=== PATIENT | female | born 1980 | race Caucasian/White ===

== ENCOUNTER → 2017-03-15 | Outpatient (CLI) | payer BC ==
[~2017-03-15] MED LIST: CDN30 PO; LEVO88CA2 PO; MTR600X PO; NAPR1TAB9 PO; OPTIRAY 300 IV PRN; RXC5 PO; TRAZ50TA35 PO
--- NOTE | 2017-03-15 14:58 | DIAGNOSTIC IMAGING REPORT ---
IVP W/OR W/O TOMOGRAMS CLINICAL HISTORY: Elevated creatinine. COMPARISON STUDY: No previous studies for comparison. TECHNIQUE: Initially, air value tester KUB was obtained. An intravenous pyelogram was then performed following intravenous injection 100 cc of Optiray 300 IV. FINDINGS: Harvest Supervisor KUB demonstrates a normal bowel gas pattern. No urinary calculi are identified although the right renal shadow is partially obscured by stool. Densities projecting over the right kidney favor stool. Tubal ligation clips are noted. Both nephrograms are symmetric. There is no hydronephrosis. 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 The ureters are duplicated at least to the level of the distal ureter. It's unclear on this exam whether this is a complete or incomplete duplication. The left collecting system is normal. No upper tract filling defects are identified. IMPRESSION: 1. 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 It's unclear whether this represents a complete or incomplete duplication. The distal ureters may fuse although an ectopic insertion cannot be excluded on this exam. 2. No hydronephrosis. 3. No upper tract filling defects. Electronically signed by: Jewel Lino M.D. 03/15/2017 2:56 PM Dictated Date/Time: 03/15/2017 2:27 PM
== END | disposition home or self-care (01) ==
LOC: C.RAD 12:24
PROVIDERS: ATTEND Obstetrics & Gynecology
DX: R79.89 Other specified abnormal findings of blood chemistry (principal)

== ENCOUNTER 2017-03-24 07:56 | Observation (INO) | payer BC ==
[2017-03-09 16:47] LABS: BASO % 0.2 %; BASO ABS # 0.01 K/uL (0-0.2); COMPLETE YES; EOS % 2.8 %; HEMATOCRIT 37.4 % (37-47); IG% 0.2 %; LYMPH % 30.2 %; LYMPH ABS # 1.81 K/uL (1.2-3.4); MEAN CELL VOLUME 91.2 fL (80-100); MEAN CORPUSCULAR HEMOGLOBIN 30.5 pg (25-34); MEAN CORPUSCULAR HGB CONC 33.4 g/dl (32-36); MEAN PLATELET VOLUME 9.3 fL (7.4-10.4); MONO % 8.5 %; NEUT % 58.1 %; PLATELET COUNT 311 K/uL (130-400); WHITE BLOOD COUNT 5.99 K/uL (4.8-10.8)
[2017-03-09 17:21] LABS: BLOOD UREA NITROGEN 17 mg/dl (7-18); BUN/CREATININE RATIO 15.1 (10-20); CARBON DIOXIDE 27 mmol/L (21-32); CHLORIDE 107 mmol/L (98-107); GLUCOSE 91 mg/dl (70-99); POTASSIUM 4.1 mmol/L (3.5-5.1); SODIUM 139 mmol/L (136-145)
[2017-03-09 18:04] LABS: CALCIUM 8.8 mg/dl (8.5-10.1)
[2017-03-10 10:24] VITALS: BMI 24.0
[~2017-03-24] VITALS: Ht 170.2 cm; Wt 70.5 kg
[2017-03-24] VITALS (8 sets, daily range): BP systolic 90–103; BP diastolic 40–70; PULSE 60–76; TEMP 36.5–37; O2SAT 97–100; Ht 170.2 cm; Wt 70.5 kg
[~2017-03-24 07:56] MED LIST changes: -CDN30 PO; +CEFAZOLIN 2000 MG/60 ML D5W 50 ML IV SCH; +LACTATED RINGER'S 1000ML 1,000 ML IV SCH; -MTR600X PO; -OPTIRAY 300 IV PRN; -RXC5 PO; -TRAZ50TA35 PO
[2017-03-24] MEDS ORDERED: MIDAZOLAM HCL 1 MG/ML 2ML VIAL ONE (08:05)
[2017-03-24] MEDS ORDERED: FENTANYL CITRATE INJ 50 MCG/1 ML 2 ML VIAL ONE ×3 (08:05→12:08)
[2017-03-24] MEDS ORDERED: TRAZ50TA35 PO (08:19)
--- NOTE | 2017-03-24 08:36 | History & Physical Bridge Note ---
H&P Re-Evaluation Bridge Note: I have examined the patient, reviewed the History & Physical and in the interval since the performance of the History & Physical I have noted the following changes of clinical significance: No changes noted
[2017-03-24] MEDS ORDERED: BUPIVACAINE 0.5 % 5 MG/1 ML MPF 30ML VIAL ONE (09:23)
[2017-03-24] MEDS ORDERED: METHYLENE BLUE 0.5% 10 ML VIAL ONE (09:23)
[2017-03-24] MEDS ORDERED: DEXAMETHASONE SOD INJ 4 MG/ML VIAL ONE (10:16)
[2017-03-24] MEDS ORDERED: ROCURONIUM BROMIDE 10 MG/ML 5 ML VIAL ONE ×2 (10:16→10:48)
[2017-03-24] MEDS ORDERED: NEOSTIGMINE METHYLSULFATE 5 MG/5 ML SYR ONE (10:16)
[2017-03-24] MEDS ORDERED: PROPOFOL IV EMULSION 10 MG/ML 20 ML VIAL IV ONE ×2 (10:16→12:18)
[2017-03-24] MEDS ORDERED: ONDANSETRON INJ 2 MG/ML 2 ML VIAL ONE (10:16)
[2017-03-24] MEDS ORDERED: LIDOCAINE HCL 2% 2 ML VIAL (20MG/ML) ONE (10:16)
[2017-03-24] MEDS ORDERED: GLYCOPYRROLATE INJ 0.2 MG/ML VIAL ONE (10:16)
[2017-03-24] MEDS ORDERED: ATROPINE SULFATE 0.1 MG/ML 5ML SYR IV PRN (10:30)
[2017-03-24] MEDS ORDERED: LABETALOL HCL IV 5 MG/ML 20ML IV PRN (10:30)
[2017-03-24] MEDS ORDERED: EpHEDrine SULFATE INJ 50 MG/ML AMP IV PRN (10:30)
[2017-03-24] MEDS ORDERED: MEPERIDINE HCL 25 MG/ML CARP IV PRN (10:30)
[2017-03-24] MEDS ORDERED: ONDANSETRON INJ 2 MG/ML 2 ML VIAL IV PRN ×2 (10:30→12:15)
[2017-03-24] MEDS ORDERED: HYDROmorphone INJ 0.5 MG/0.5 ML SYR IV PRN (10:30)
[2017-03-24] MEDS ORDERED: LACTATED RINGER'S 1000ML 1,000 ML IV SCH (12:11)
--- NOTE | 2017-03-24 12:14 | [facility] Post Operative Brief Note ---
Immediate Operative Summary Operative Date March 24, 2017. Pre-Operative Diagnosis Menorrhagia, Pelvic Pain, Uterine Leiomyoma Post-Operative Diagnosis Same as preop Procedure(s) Performed Total Laparoscopic Hysterectomy, Bilateral Salpingectomy Robot Assist; Cystoscopy Surgeon Dr. Ford Outpatient Coding Specialist Surgeon(s) Dr. Cassidy Estimated Blood Loss 30ml Findings adhesions Specimens A. Cervix, Uterus, Bilateral Fallopian Tubes Drains Renae Anesthesia General Complication(s) None Disposition Recovery Room / PACU
[2017-03-24] MEDS ORDERED: PROMETHAZINE HCL INJ 12.5 MG in SODIUM CHLORIDE 0.9% 50ML 50 ML IV PRN (12:15)
[2017-03-24] MEDS ORDERED: MAGNESIUM HYDROXIDE SUSP 30 ML UDC PO PRN (12:15)
[2017-03-24] MEDS ORDERED: KETOROLAC TROMETHAMINE 30 MG/ML VIAL IV. PRN (12:15)
[2017-03-24] MEDS ORDERED: SIMETHICONE 80 MG CHEW PO PRN (12:15)
[2017-03-24] MEDS ORDERED: MEPERIDINE HCL 50 MG/ML CARP IV PRN ×2 (12:15)
[2017-03-24] MEDS ORDERED: IBUPROFEN 600 MG TAB PO PRN (12:15)
[2017-03-24] MEDS ORDERED: CODEINE SULFATE 30 MG TAB PO PRN (12:15)
[2017-03-24] MEDS ORDERED: PROMETHAZINE HCL INJ 25 MG in SODIUM CHLORIDE 0.9% 50ML 50 ML IV PRN (12:15)
[2017-03-24] MEDS ORDERED: BISACODYL 10 MG SUPP PR PRN (12:15)
[2017-03-24] MEDS ORDERED: ZOLPIDEM TARTRATE 5 MG TAB PO PRN (12:15)
--- NOTE | 2017-03-24 12:23 | Discharge Instructions ---
Discharge Instructions Date of Service March 24, 2017. Admission Reason for Admission: Menorrhagia, Pelvic Pain, Uterine Leiomyoma Discharge Discharge Diagnosis / Problem: menorrhagia Discharge Goals Goal(s): Routine recovery after surgery Activity Recommendations Activity Limitations: per Instructions/Follow-up section . Instructions / Follow-Up Instructions / Follow-Up POST OPERATIVE: BOWEL FUNCTION/MEDICATIONS: 1. Constipation pain and discomfort are the most common complaints 5-7 days after surgery. Points 2-6 address the things that can help. 2. Chewing gum can help stimulate the gut and help improve digestion and motility. 3. Milk of Magnesia 1-2 times per day until return of bowel function. 4. Colace is a stool softener that helps. Taking this 2-3 times per day until bowel function returns to normal is highly recommended. 5. Dulcolax is a laxative that may be used if several days have passed without a bowel movement. Alternatively Miralax may be used daily instead. 6. Drink plenty of fluids as this will also reduce constipation. 7. Narcotic pain medications will be prescribed by your physician. They are safe to use and we encourage you to use them. If you are not allergic, ibuprofen will also be prescribed. Many patients will be able to transition off of the narcotic medications to ibuprofen by postoperative day 3. ACTIVITY RECOMMENDATIONS: 1. Get plenty of rest and listen to your body. If you are tired, take a nap. 2. You may shower, but do not take a tub bath until you see your doctor at the 2 week post operative visit. 3. Absolutely NO intercourse and nothing in the vagina until you are examined by your doctor at the 6 week visit. At that visit it will be determined when such activities can be resumed. This can range from 6-12 weeks after your surgery depending on healing time. 4. The main physical activity in the first week should be walking. By the second week you can slowly increase activity. There are no limits on walking up and down stairs. 5. Do not lift more than 5-10 lbs for 4 weeks. Remember the "one-handed rule", i.e. if you can lift something with only one hand it's likely okay. 6. Minimize marketing operations assistant like vacuuming and exercising for 4 weeks. "Overdoing it" can lead to incisions not healing, pain and vaginal bleeding , so again, listen to your body. 7. Driving can be resumed when you feel able. Do not drive within 24 hours of taking a narcotic medication. EXPECTATIONS: 1. Vaginal spotting, bleeding and discharge are common after surgery. There may even be an odor to the discharge which is often related to sutures used in the vagina. If you experience heavy vaginal bleeding, call the office number day or night [phone]. 2. Bladder discomfort is common after surgery from the catheter. This usually resolves in 1-2 weeks. 3. By the end of the 3rd or 4th week you should be feeling much better. It may take up to 6 weeks for your energy levels to return to normal. 4. Narcotic medications have side effects such as: dizziness, headache, nausea and/or vomiting. If you suspect your pain medication is causing problems, call our office and we may be able to prescribe an alternate medication. 5. The skin incisions are often covered with a liquid bandage. This will gradually peel off over time. CALL THE OFFICE IF YOU HAVE ANY OF THE FOLLOWIN. Temperature of 101 degrees or higher. 2. Severe abdominal or pelvic pain not relieved by pain medication. 3. Persistent nausea or vomiting. 4. Increased pain with urination or difficulty urinating. 5. Bright red bleeding that soaks more than 1 pad per hour. CONTACT PHONE NUMBERS: Main Office: [phone] Surgical Nurse: [phone] extension [phone] Avoid all tobacco products. If you need help to stop smoking, call [place]'s FREE QUITLINE at . This is a free call. Current Hospital Diet Patient's current hospital diet: Discharge Diet Recommended Diet: Regular Diet Procedures Procedures Performed: Total Laparoscopic Hysterectomy, Bilateral Salpingectomy Robot Assist; Cystoscopy Pending Studies Studies pending at discharge: no Medical Emergencies . Who to Call and When: Medical Emergencies: If at any time you feel your situation is an emergency, please call 911 immediately. . Non-Emergent Contact Non-Emergency issues call your: [employer] Targeting Supervisor . . "Provider Documentation" section prepared by Raul Ford. . VTE Core Measure Inpt VTE Proph given/why not?: Margareth Moon, ESTEFANIA's
[2017-03-24] MEDS ORDERED: CDN30 PO (12:24)
[2017-03-24] MEDS ORDERED: MTR600X PO (12:24)
[2017-03-24] MEDS: FENTANYL CITRATE INJ 50 MCG/1 ML 2 ML VIAL IV PRN ×3 (12:39→12:49)
[2017-03-24] MEDS ORDERED: IV FLUIDS COMPLETED PRN (12:45)
--- NOTE | 2017-03-24 13:17 | OPERATIVE REPORT ---
DATE OF OPERATION: 03/24/2017 PREOPERATIVE DIAGNOSES: Menorrhagia, pelvic pain, enlarged uterus. POSTOPERATIVE DIAGNOSES: Same. PROCEDURE: Total laparoscopic hysterectomy, bilateral salpingectomy, robot assisted, and cystoscopy. SURGEON: Dr. Ford. LIME SLUDGE KILN OPERATOR: Dr. Cassidy. ESTIMATED BLOOD LOSS: 30 mL FINDINGS: Dense bladder and pelvic adhesions. SPECIMENS: Cervix, uterus, bilateral fallopian tubes. DRAINS: Renae. ANESTHETIC: General. COMPLICATIONS: None. DISPOSITION: Recovery. DESCRIPTION OF PROCEDURE: Sherry was given a general anesthetic, prepped and draped in dorsal lithotomy position. She received preoperative antibiotics. Renae catheter placed in her bladder. VCare was initially attempted to be placed in her uterus. Initially, we were only able to enter a few centimeters, but then we were able to place the VCare balloon appropriately which was approximately 9 cm in. This was sewn in place. During the case, we did have to adjust this several times as the VCare did come in the lower segment and was readjusted to the proper area later on. Gloves were changed, and as noted, the Renae catheter had already been placed in her bladder. A supraumbilical incision made with scalpel. Using Dotty technique, we did a direct cutdown, cutting down through subcutaneous fat through the fascia in the midline, splitting the rectus muscles and entering the peritoneal cavity without difficulty. Blunt-tipped Dotty trocar then placed. Balloon inflated. CO2 gas to inflate the abdomen. Deep Trendelenburg position then obtained and following findings. There was an adhesion of the omentum to the uterus and there were dense bladder adhesions, especially on the patient's right side incorporating the round ligament. Pictures were taken for documentation. Adhesions were likely related to prior C-sections. The adnexa appeared normal as did the fallopian tubes. The appendix appeared normal. No other pathology. Three robotic ports, 2 in the right and 1 in the left placed under direct visualization. Left upper quadrant 11 mm accessory port placed under direct visualization. The procedure was begun by using the robot docking, arm #1 was monopolar laura, arm #2 the bipolar [place], arm #3 was the ProGrasp. We removed the fallopian tubes first on the left and right side. The patient was known to have a double right ureter, so we did follow the course of this, and they did track along fairly close to each other and they were nowhere near the uterus or the uteroovarian blood supply on the right side. Once fallopian tubes were removed through the accessory port, I coagulated the blood supply distal to the left ovary. This was with the bipolar [place], cut with monopolar laura. Same process with the round ligament. Adhesions were dense. I was not able to fully visualize the uterine vessels on that side, primarily due to adhesions, but I had freed things up a lot at this stage, so we then paid attention to the other side. Same process of staying away from the ureter, I identified the uteroovarian blood supply distal to the ovary, coagulated this and cut this. I was able to skeletonize on this side the uterine vessels as well. The dense anterior adhesion really was primarily round ligament. We were able to cut through this carefully after identifying the bladder plane. At this stage, I was then finally able to coagulate and then cut the uterine vessels on both sides, staying well away from the ureters. We then fully skeletonized the bladder away sharply from the lower segment of the uterus. At this stage, we did have to make a VCare adjustment as it had dropped down into the lower segment. We adjusted this back into the anterior with Dr. Cassidy's help. We were then able to make a colpotomy anteriorly with the monopolar laura. At this stage, we then continued this around to separate the cervix and the vagina. The uterus was able to actually be pulled into the vagina without difficulty and released it there to maintain pneumoperitoneum. It should be noticed we then changed instruments, arm #1 became the janett needle taxi driver, arm #2 the cobra. A 12-inch, 90-day, 2-0 V-Loc suture was then placed to close the cuff, it was fairly thick I should note, but at least 1 cm full-thickness bites of vaginal mucosa starting from left to right back right to left. Suture was then cut so there was no tail and needle removed through the accessory port. At this stage, after generous irrigation and suction, Tisseel was applied for hemostasis. We performed cystoscopy, visualized a normal bladder dome, and on the left side, a good strong jet of blue dye from the left ureteral opening. There were 2 ureter openings on the right, one in the normal location and one more toward the urethral opening, and both showed good strong blue jet dyes. No other abnormalities. No suture was seen in the bladder. At this stage, I removed the cystoscope and a new Renae catheter was then placed. It should be noted we removed the robotic arms, undocked the robot, gas allowed to escape, all incisions had been injected with Marcaine prior to the case truly being started. Ports removed. Fascia closed with 0 Vicryl in the umbilical port and the accessory port and then 4-0 subcuticular Monocryl. The left lateral incision was somewhat lacking in hemostasis, so I put several interrupted sutures and this seemed to help. At the end of the procedure, sponge and instrument counts were correct. A new Renae catheter was then draining clearish blue fluid. In the vagina, there was no bleeding active. The patient sent to recovery in stable condition. I attest to the content of the Intraoperative Record and any orders documented therein. Any exceptio ns are noted below.
--- NOTE | 2017-03-24 14:44 | Anesthesiology Progress Note ---
Anesthesia Post Op Note Date & Time March 24, 2017 at 14:43 Vital Signs Pain Intensity: 2.0 Vital Signs Past 12 Hours Date Time Temp Pulse Resp B/P Pulse Ox O2 Delivery O2 Flow Rate FiO2 03/24/17 14:20 36.5 60 18 100/63 97 Room Air 03/24/17 13:50 36.8 60 20 100/62 98 Room Air 03/24/17 13:30 98 Room Air 03/24/17 13:30 98 Room Air 03/24/17 13:30 37.0 65 20 102/58 98 Room Air 03/24/17 13:20 59 14 99/57 100 Nasal Cannula 2 03/24/17 13:10 36.3 61 15 100/56 100 Nasal Cannula 2 03/24/17 13:00 59 15 107/59 100 Nasal Cannula 2 03/24/17 12:50 57 11 108/56 100 Mask 10 03/24/17 12:40 61 19 108/57 100 Mask 10 03/24/17 12:32 36.7 65 14 99/52 100 Mask 10 03/24/17 08:20 18 Room Air Notes Mental Status: alert / awake / arousable, participated in evaluation Pt Amnestic to Procedure: Yes Nausea / Vomiting: adequately controlled Pain: adequately controlled Airway Patency, RR, SpO2: stable & adequate BP & HR: stable & adequate Hydration State: stable & adequate Anesthetic Complications: no major complications apparent
[2017-03-24] MEDS ORDERED: DOCUSATE SODIUM 100 MG CAP PO SCH (20:00)
--- NOTE | 2017-03-31 11:18 | DISCHARGE SUMMARY ---
Sherry had a total laparoscopic hysterectomy on the date of 03/24/2017. Operative note has been dictated. Surgery was uncomplicated. Her course in hospital was that she was discharged later in the day. She initially had some pain, but this was controlled by medication, she was ambulating, tolerating an oral diet and had no vaginal bleeding. PHYSICAL EXAMINATION: VITAL SIGNS: Stable. She was afebrile. ABDOMEN: Soft, nontender. EXTREMITIES: Negative. She was discharged home on codeine and Motrin and told to follow up in the office.
== END 2017-03-24 20:55 | disposition home or self-care (01) ==
LOC: ENRESERVDT → ENRESERVTM → C.ACU 07:56 → C.OBG 08:10
PROVIDERS: ADMIT Obstetrics & Gynecology; ATTEND Obstetrics & Gynecology
DX: D25.9 Leiomyoma of uterus, unspecified (principal); N85.2 Hypertrophy of uterus; N80.0 Endometriosis of uterus; N73.6 Female pelvic peritoneal adhesions (postinfective); N83.8 Other noninflammatory disorders of ovary, fallopian tube and broad ligament; F17.200 Nicotine dependence, unspecified, uncomplicated; Z79.899 Other long term (current) drug therapy

== ENCOUNTER 2017-03-25 01:54 | Observation (INO) | payer BC ==
[~2017-03-25] VITALS: Ht 167.6 cm; Wt 71.0 kg
[~2017-03-25 01:54] MED LIST changes: +CDN30 PO; -CEFAZOLIN 2000 MG/60 ML D5W 50 ML IV SCH; -LACTATED RINGER'S 1000ML 1,000 ML IV SCH; +MTR600X PO; +TRAZ50TA35 PO
[2017-03-25] MEDS ORDERED: MoRPHine SULFATE 10 MG/ML CARP/VIAL IV STA (04:06)
[2017-03-25] MEDS ORDERED: ONDANSETRON INJ 2 MG/ML 2 ML VIAL IV STA ×2 (04:06→05:30)
[2017-03-25] MEDS ORDERED: SODIUM CHLORIDE 0.9% 1000ML 1,000 ML IV ONE (04:15)
[2017-03-25] MEDS ORDERED: HYDROmorphone INJ 1 MG/ML SYR IV STA ×3 (04:48→07:14)
[2017-03-25 05:24] LABS: MANUAL MICROSCOPIC REQUIRED? YES; REVIEW REQ? NO; SULFASALICYLIC ACID NEG (NEG); URINE APPEARANCE CLEAR (CLEAR); URINE COLOR GREEN
[2017-03-25 05:25] LABS: URINE SPECIFIC GRAVITY 1.009 (1.000-1.030)
[2017-03-25 05:30] LABS: URINE BACTERIA NEG (NEG)
[2017-03-25] MEDS ORDERED: DiphenhydrAMINE HCL 50 MG/ML VIAL IV STA (05:30)
[2017-03-25] MEDS ORDERED: METHYLPREDNISOLONE 125 MG VIAL IV STA (05:30)
[2017-03-25 05:31] LABS: ZZUR CULT IF INDIC CLEAN CATCH NO
[2017-03-25 05:35] LABS: COMPLETE YES; HEMATOCRIT 36.6 % (37-47); IG% 0.4 %; LYMPH % 15.4 %; LYMPH ABS # 1.75 K/uL (1.2-3.4); MEAN CELL VOLUME 88.2 fL (80-100); MEAN CORPUSCULAR HEMOGLOBIN 29.9 pg (25-34); MEAN CORPUSCULAR HGB CONC 33.9 g/dl (32-36); MEAN PLATELET VOLUME 9.7 fL (7.4-10.4); MONO % 9.6 %; NEUT % 74.6 %; PLATELET COUNT 284 K/uL (130-400); RED BLOOD COUNT 4.15 M/uL (4.2-5.4); WHITE BLOOD COUNT 11.39 K/uL (4.8-10.8)
[2017-03-25 05:45] LABS: BUN/CREATININE RATIO 18.8 (10-20); CALCIUM 8.9 mg/dl (8.5-10.1); CREATININE 0.85 mg/dl (0.60-1.20); POTASSIUM 3.9 mmol/L (3.5-5.1)
[2017-03-25 05:47] LABS: ALB/GLOB RATIO 1.4 (0.9-2)
--- NOTE | 2017-03-25 06:26 | DIAGNOSTIC IMAGING REPORT ---
ABDOMEN 2VIEW W/PA CHEST RTN CLINICAL HISTORY: right shoulder pain after abd surg pain COMPARISON STUDY: No previous studies for comparison. FINDINGS: Subdiaphragmatic free air on a postoperative basis. Lungs are considered clear. No evidence pneumothorax. Bowel pattern is nonobstructive. IMPRESSION: Subdiaphragmatic and free intraperitoneal air on a postoperative basis. Negative chest. Electronically signed by: Subhash Moraes M.D. 03/25/2017 6:24 AM Dictated Date/Time: 03/25/2017 6:23 AM
[2017-03-25] MEDS ORDERED: OPTIRAY 320 IV PRN (07:15)
--- NOTE | 2017-03-25 07:15 | EMERGENCY ROOM VISIT NOTE ---
History First contact with patient: 07:05 Chief Complaint: PAIN (GENERALIZED) Stated Complaint: SHOULDER PAIN AFTER HISTO SURGERY History of Present Illness The patient case was signed out to me at 0700 by Hayder Lamb PA-C. Please refer to his history of present illness regarding the patient's history. Review of Systems Please refer to Hayder Lamb PA-C initial note. Past Medical/Surgical History Medical Problems: (1) Enlarged uterus (2) Menorrhagia (3) Pelvic pain (4) Post-op pain Family History Please refer to Hayder Lamb PA-C initial note. Social History Smoking Status: Current Every Day Smoker Social History: Please refer to Hayder Lamb PA-C initial note. Current/Historical Medications Scheduled Levothyroxine Sodium (Tirosint), 1 CAP PO QAM Scheduled PRN Codeine Sulfate (Codeine Sulfate), 30 MG PO Q4 PRN for Pain Ibuprofen (Ibuprofen), 600 MG PO Q6H PRN for Pain,COMER,cramping,or fever Naproxen (Aleve), 1-2 TAB PO Q12 PRN for Pain Trazodone Hcl (Trazodone), 50 MG PO for Sleep Allergies Coded Allergies: Acetaminophen (Verified Allergy, Intermediate, SWELLING, HIVES, 03/25/17) Shrimp (Verified Allergy, Intermediate, SWELLING AND HIVES, 03/25/17) Physical Exam Vital Signs Date Time Temp Pulse Resp B/P Pulse Ox O2 Delivery O2 Flow Rate FiO2 03/25/17 08:29 94 Room Air 03/25/17 07:29 70 18 115/71 97 Room Air 03/25/17 06:37 80 18 113/72 99 Room Air 03/25/17 05:00 77 18 114/61 97 03/25/17 03:56 90 22 107/74 97 Room Air 03/25/17 02:04 83 24 106/66 98 Room Air Physical Exam Please refer to Hayder Lamb PA-C initial note. Medical Decision & Procedures ER Provider Diagnostic Interpretation: ABDOMEN AND PELVIS CT WITH IV AND ORAL CONTRAST CT DOSE: 372.35 mGy.cm HISTORY: Postoperative pain Free air and pain. Lap Hysterectomy 24hr ago. TECHNIQUE: Multiaxial CT images of the abdomen and pelvis were performed following the use of intravenous and oral contrast. COMPARISON STUDY: None. FINDINGS: Lung bases are clear. Free intraperitoneal air is present. Patient prior hysterectomy within 24 hours of this procedure area in the small amount of air within the rectus musculature bilaterally as well as in the periumbilical region. This presumably is postoperative. Bowel pattern overall is nonobstructive. There is moderate amount of air within the soft tissue pelvic region. There is a 6 x 5 cm somewhat high density fluid pocket within the pelvic cul-de-sac presumably representing postprocedural blood. No evidence for pneumatosis. No bowel distention. Kidneys enhance uniformly. IMPRESSION: 1. Free intraperitoneal air, air within the rectus musculature, as well as the soft tissues of the periumbilical region. 2. Soft tissue pelvic air and again on a postoperative basis. 3. Blood collection within the soft tissue pelvic region measuring 6 x 5 cm up. This appears to relate to a postprocedural hematoma 4. Operative changes consistent with hysterectomy within 24 hours prior to this scan. 5. Nonobstructive bowel pattern. Electronically signed by: Subhash Moraes M.D. 03/25/2017 8:29 AM Dictated Date/Time: 03/25/2017 8:24 AM Laboratory Results 03/25/17 02:30 Red Blood Count 4.15, Mean Corpuscular Volume 88.2, Mean Corpuscular Hemoglobin 29.9, Mean Corpuscular Hemoglobin Concent 33.9, Mean Platelet Volume 9.7, Neutrophils (%) (Auto) 74.6, Lymphocytes (%) (Auto) 15.4, Monocytes (%) (Auto) 9.6, Eosinophils (%) (Auto) 0.0, Basophils (%) (Auto) 0.0, Neutrophils # (Auto) 8.51, Lymphocytes # (Auto) 1.75, Monocytes # (Auto) 1.09, Eosinophils # (Auto) 0.00, Basophils # (Auto) 0.00 03/25/17 02:30 Test 03/25/17 02:30 03/25/17 05:00 White Blood Count 11.39 K/uL (4.8-10.8) Red Blood Count 4.15 M/uL (4.2-5.4) Hemoglobin 12.4 g/dL (12.0-16.0) Hematocrit 36.6 % (37-47) Mean Corpuscular Volume 88.2 fL (80-100) Mean Corpuscular Hemoglobin 29.9 pg (25-34) Mean Corpuscular Hemoglobin Concent 33.9 g/dl (32-36) Platelet Count 284 K/uL (130-400) Mean Platelet Volume 9.7 fL (7.4-10.4) Neutrophils (%) (Auto) 74.6 % Lymphocytes (%) (Auto) 15.4 % Monocytes (%) (Auto) 9.6 % Eosinophils (%) (Auto) 0.0 % Basophils (%) (Auto) 0.0 % Neutrophils # (Auto) 8.51 K/uL (1.4-6.5) Lymphocytes # (Auto) 1.75 K/uL (1.2-3.4) Monocytes # (Auto) 1.09 K/uL (0.11-0.59) Eosinophils # (Auto) 0.00 K/uL (0-0.5) Basophils # (Auto) 0.00 K/uL (0-0.2) RDW Standard Deviation 43.0 fL (36.4-46.3) RDW Coefficient of Variation 13.2 % (11.5-14.5) Immature Granulocyte % (Auto) 0.4 % Immature Granulocyte # (Auto) 0.04 K/uL (0.00-0.02) Anion Gap 10.0 mmol/L (3-11) Est Creatinine Clear Calc Drug Dose 85.6 ml/min Estimated GFR () 102.2 Estimated GFR (Non- 88.2 BUN/Creatinine Ratio 18.8 (10-20) Calcium Level 8.9 mg/dl (8.5-10.1) Total Bilirubin 0.9 mg/dl (0.2-1) Aspartate Amino Transf (AST/SGOT) 13 U/L (15-37) Alanine Aminotransferase (ALT/SGPT) 16 U/L (12-78) Alkaline Phosphatase 31 U/L (45-117) Total Protein 7.1 gm/dl (6.4-8.2) Albumin 4.2 gm/dl (3.4-5.0) Globulin 2.9 gm/dl (2.5-4.0) Albumin/Globulin Ratio 1.4 (0.9-2) Urine Color GREEN Urine Appearance CLEAR (CLEAR) Urine pH (4.5-7.5) Urine Specific Thompson 1.009 (1.000-1.030) Urine Protein NEG (NEG) Urine Glucose (UA) (NEG) Urine Ketones (NEG) Urine Occult Blood (NEG) Urine Nitrite (NEG) Urine Bilirubin (NEG) Urine Urobilinogen (NEG) Urine Leukocyte Esterase (NEG) Urine RBC 10-30 /hpf (0-4) Urine WBC 1-5 /hpf (0-5) Urine Epithelial Cells 10-20 /lpf (0-5) Urine Bacteria NEG (NEG) Medications Administered Medications (Trade) Dose Ordered Sig/Nikki Route Start Time Stop Time Status Last Admin Dose Admin Sodium Chloride (Nss 1000ml) 1,000 ml @ 999 mls/hr Q1H1M ONCE IV 03/25/17 04:15 03/25/17 05:15 DC 03/25/17 04:13 999 MLS/HR Morphine Sulfate (MoRPHine SULFATE INJ) 6 mg NOW STAT IV 03/25/17 04:06 03/25/17 04:07 DC 03/25/17 04:13 6 MG Ondansetron HCl (Zofran Inj) 4 mg NOW STAT IV 03/25/17 04:06 03/25/17 04:07 DC 03/25/17 04:13 4 MG Hydromorphone HCl (Dilaudid Inj) 1 mg NOW STAT IV 03/25/17 04:48 03/25/17 04:49 DC 03/25/17 04:59 1 MG Diphenhydramine HCl (Benadryl Inj) 25 mg NOW STAT IV 03/25/17 05:30 03/25/17 05:31 DC 03/25/17 07:57 25 MG Methylprednisolone Sodium Succinate (Solu-Medrol IV) 125 mg NOW STAT IV 03/25/17 05:30 03/25/17 05:31 DC 03/25/17 07:57 125 MG Hydromorphone HCl (Dilaudid Inj) 1 mg NOW STAT IV 03/25/17 06:04 03/25/17 06:05 DC 03/25/17 06:07 1 MG Hydromorphone HCl (Dilaudid Inj) 1 mg NOW STAT IV 03/25/17 07:14 03/25/17 07:15 DC 03/25/17 07:27 1 MG Magnesium Hydroxide 30 ml 30 ml Q6H PRN PO 03/25/17 09:00 04/24/17 08:59 03/25/17 10:56 30 ML Lactated Ringer's (Lr 1000ml) 1,000 ml @ 125 mls/hr Q8H IV 03/25/17 08:59 04/24/17 08:58 03/25/17 10:54 125 MLS/HR Medical Decision Patient was signed out to me at 0700 hrs. She was evaluated by myself shortly after 7 AM. Her pain was returning, therefore she was offered another dose of pain medication prior to CT scan, however due to the amount of pain medication she received I did elect to begin continuous pulse ox monitoring. She was reevaluated and was feeling better, and her CT scan results indicated that she has postoperative findings. There is no evidence to suggest acute intra- abdominal injury or infection. I was called by the surgeon who completed the case, Dr. Ford, whom I spoke with regarding the patient's pain level and CT scan. In my clinical judgment I informed him that I felt the patient would benefit from pain management here as she barely has her pain controlled with IV pain medication. I informed the patient upon this finding, and shortly thereafter she was evaluated by Dr. Ford. Please refer to further evaluation and documentation regarding her stay in the inpatient setting. She is stable for admission. In evaluation treatment this patient following differential diagnoses were entertained: Intra-abdominal injury, postoperative pain, among others. Departure Information Dispostion Admitted as an inpatient Condition [facility]IR Referrals Gallito Chavez PA-C (PCP) Patient Instructions My [facility]
[2017-03-25] MEDS ORDERED: METHYLPREDNISOLONE 125 MG VIAL ONE (07:56)
[2017-03-25] MEDS ORDERED: DiphenhydrAMINE HCL 50 MG/ML VIAL ONE (07:56)
--- NOTE | 2017-03-25 08:31 | DIAGNOSTIC IMAGING REPORT ---
ABDOMEN AND PELVIS CT WITH IV AND ORAL CONTRAST CT DOSE: 372.35 mGy.cm HISTORY: Postoperative pain Free air and pain. Lap Hysterectomy 24hr ago. TECHNIQUE: Multiaxial CT images of the abdomen and pelvis were performed following the use of intravenous and oral contrast. COMPARISON STUDY: None. FINDINGS: Lung bases are clear. Free intraperitoneal air is present. Patient prior hysterectomy within 24 hours of this procedure area in the small amount of air within the rectus musculature bilaterally as well as in the periumbilical region. This presumably is postoperative. Bowel pattern overall is nonobstructive. There is moderate amount of air within the soft tissue pelvic region. There is a 6 x 5 cm somewhat high density fluid pocket within the pelvic cul-de-sac presumably representing postprocedural blood. No evidence for pneumatosis. No bowel distention. Kidneys enhance uniformly. IMPRESSION: 1. Free intraperitoneal air, air within the rectus musculature, as well as the soft tissues of the periumbilical region. 2. Soft tissue pelvic air and again on a postoperative basis. 3. Blood collection within the soft tissue pelvic region measuring 6 x 5 cm up. This appears to relate to a postprocedural hematoma 4. Operative changes consistent with hysterectomy within 24 hours prior to this scan. 5. Nonobstructive bowel pattern. Electronically signed by: Subhash Moraes M.D. 03/25/2017 8:29 AM Dictated Date/Time: 03/25/2017 8:24 AM
[2017-03-25] MEDS ORDERED: ZOLPIDEM TARTRATE 5 MG TAB PO PRN (09:00)
[2017-03-25] MEDS ORDERED: ONDANSETRON INJ 2 MG/ML 2 ML VIAL IV PRN (09:00)
--- NOTE | 2017-03-25 09:29 | HISTORY & PHYSICAL EXAMINATION ---
DATE OF ADMISSION: 03/25/2017 GYNECOLOGICAL CONSULTATION AND HISTORY AND PHYSICAL HISTORY OF PRESENT ILLNESS: Sherry had a laparoscopic hysterectomy on 03/24/2017. This was uncomplicated with the exception of significant adhesive disease, especially with the prior C-sections. Cystoscopy was normal at the time of surgery and there was no evidence of or bowel injury at the time of surgery. Later that day, she did improve and was able to be discharged home. Unfortunately, over the night, she had increased pain, primarily in the shoulder tip consistent with postoperative laparoscopy gas pain. She called my colleague Dr. Cassidy and was given advice, and the patient did end up showing up in the ER at some point. At that stage, she rated her pain as a 10/10 and required IV narcotics for her pain control. At that stage, lab results were obtained, and CT scan and flat plate were ordered. Pain did improve. With the IV narcotics, she did say that she was urinating fine but not passing much gas and not had a bowel movement. She felt no distention. MEDICAL HISTORY: Three prior C-sections, otherwise healthy. SURGICAL HISTORY: Three prior C-sections. SOCIAL HISTORY: Nonsmoker, nondrinker. REVIEW OF SYSTEMS: Negative. MEDICATIONS: Codeine at home. DRUG ALLERGIES: TYLENOL. PHYSICAL EXAMINATION: VITAL SIGNS: Stable. She is afebrile. CHEST: Clear. CARDIOVASCULAR: Normal rate and rhythm. ABDOMEN: Abdomen is nondistended, nontender. Bowel sounds are positive. PELVIC: Deferred at this time. EXTREMITIES: Negative for tenderness or redness. IMPRESSION AND PLAN: Sherry has significant pain. This is unusual within 24 hours of laparoscopic hysterectomy. However, the patient lives 1 hour away. I do think her pain is unlikely to be serious in cause for several reasons. 1. Her white count is not significantly elevated, in fact it is just minimally elevated consistent with recent surgery. 2. Her creatinine is normal, suggesting normal kidney function, in fact it is somewhat improved than preoperative levels. 3. Her hemoglobin is stable. 4. Her CAT scan is also reassuring. It does show some free air which is consistent with recent laparoscopy, a small amount of blood collection 6 x 5 cm in the pelvis, again consistent with prior surgery. It also reveals no evidence of bowel obstruction and intact system. I feel as though the issue is pain management. We will address this as best we can with IV and oral pain medications. HER ALLERGY TO TYLENOL IS HIGH, so I will try to avoid this. I will follow her closely and hopefully she will be able to be discharged once her pain control is improved.
[2017-03-25 10:25] VITALS: BP 114/72; PULSE 62; TEMP 36.6; Ht 167.6 cm; Wt 71.0 kg
[2017-03-25] MEDS: LACTATED RINGER'S 1000ML 1,000 ML IV SCH (10:54)
[2017-03-25] MEDS: OXYCODONE HCL IR 5 MG TAB (IMMEDIATE RELEASE) PO PRN ×2 (10:54→14:39)
[2017-03-25] MEDS: MAGNESIUM HYDROXIDE SUSP 30 ML UDC PO PRN ×2 (10:56→19:38)
[2017-03-25 15:00] VITALS: BP 113/76; PULSE 59; TEMP 36.7
[2017-03-25] MEDS: MEPERIDINE HCL 25 MG/ML CARP IV PRN ×2 (18:05→22:25)
[2017-03-25 19:00] VITALS: BP 117/72; PULSE 66; TEMP 36.6
[2017-03-25] MEDS: DOCUSATE SODIUM 100 MG CAP PO SCH (19:32)
[2017-03-25] MEDS ORDERED: NURSING VERBAL MED ORDER ONE (20:15)
[2017-03-25] MEDS ORDERED: BISACODYL 10 MG SUPP ONE (20:15)
[2017-03-25 23:25] VITALS: BP 103/66; PULSE 58; TEMP 36.5
[2017-03-26] MEDS: IV FLUIDS COMPLETED PRN ×3 (01:48→12:00)
[2017-03-26] MEDS: LACTATED RINGER'S 1000ML 1,000 ML IV SCH ×2 (01:48→08:47)
[2017-03-26] MEDS: OXYCODONE HCL IR 5 MG TAB (IMMEDIATE RELEASE) PO PRN ×3 (01:55→12:24)
[2017-03-26 04:15] VITALS: BP 103/69; PULSE 64; TEMP 36.9
[2017-03-26 06:25] VITALS: BP 111/73; PULSE 60; TEMP 36.8; O2SAT 99
[2017-03-26 06:26] LABS: COMPLETE YES; EOS % 0.1 %; HEMATOCRIT 33.9 % (37-47); IG% 0.2 %; LYMPH ABS # 2.12 K/uL (1.2-3.4); MEAN CELL VOLUME 91.4 fL (80-100); MEAN CORPUSCULAR HEMOGLOBIN 28.6 pg (25-34); MEAN CORPUSCULAR HGB CONC 31.3 g/dl (32-36); MEAN PLATELET VOLUME 9.2 fL (7.4-10.4); MONO % 10.2 %; NEUT % 64.5 %; PLATELET COUNT 217 K/uL (130-400); RED BLOOD COUNT 3.71 M/uL (4.2-5.4); WHITE BLOOD COUNT 8.47 K/uL (4.8-10.8)
[2017-03-26 07:05] LABS: BUN/CREATININE RATIO 15.5 (10-20); CALCIUM 8.2 mg/dl (8.5-10.1); CREATININE 0.73 mg/dl (0.60-1.20); POTASSIUM 3.6 mmol/L (3.5-5.1)
--- NOTE | 2017-03-26 07:22 | EMERGENCY ROOM VISIT NOTE ---
History First contact with patient: 03:57 Chief Complaint: PAIN (GENERALIZED) Stated Complaint: POST-OP PAIN History of Present Illness The patient is a 36 year old female who presents to the Emergency Room with complaints of severe right upper quadrant abdominal pain and right shoulder pain. The patient had a robotic-assisted laparoscopic hysterectomy performed about 20 hours ago. The patient felt well following the procedure, and was discharged home on a codeine-based pain medication. She is allergic to Tylenol. She states that over the course of the past several hours she has had worsening abdominal pain and shoulder pain, prompting her presentation to the department. She does not report fever or chills. No chest pain or shortness of breath. She has not had vaginal bleeding or discharge from her incision sites. The patient rates her pain a 10/10. Review of Systems More than 10 systems were reviewed and otherwise negative with the exception of history of present illness. Past Medical/Surgical History Medical Problems: (1) Enlarged uterus (2) Menorrhagia (3) Pelvic pain (4) Post-op pain Family History No pertinent family history Social History Smoking Status: Current Every Day Smoker Current/Historical Medications Scheduled Levothyroxine Sodium (Tirosint), 1 CAP PO QAM Scheduled PRN Codeine Sulfate (Codeine Sulfate), 30 MG PO Q4 PRN for Pain Ibuprofen (Ibuprofen), 600 MG PO Q6H PRN for Pain,COMER,cramping,or fever Naproxen (Aleve), 1-2 TAB PO Q12 PRN for Pain Trazodone Hcl (Trazodone), 50 MG PO for Sleep Allergies Coded Allergies: Acetaminophen (Verified Allergy, Intermediate, SWELLING, HIVES, 03/25/17) Shrimp (Verified Allergy, Intermediate, SWELLING AND HIVES, 03/25/17) Physical Exam Vital Signs Date Time Temp Pulse Resp B/P Pulse Ox O2 Delivery O2 Flow Rate FiO2 03/25/17 08:29 94 Room Air 03/25/17 07:29 70 18 115/71 97 Room Air 03/25/17 06:37 80 18 113/72 99 Room Air 03/25/17 05:00 77 18 114/61 97 03/25/17 03:56 90 22 107/74 97 Room Air 03/25/17 02:04 83 24 106/66 98 Room Air Pain Rating (0-10): 4.0 Physical Exam VITALS: Vitals are noted on the nurse's note and reviewed by myself. Vital signs stable. GENERAL: Well-developed, well-nourished, white female who appears in moderate to severe discomfort. She is pacing in her emergency department room, and will not sit down as this seems to worsen her discomfort. She is holding her abdomen with her right hand. Patient is cooperative with the examination. HEART: Regular rate and rhythm without murmurs gallops or rubs. LUNGS: Clear to auscultation bilaterally without wheezes, rales or rhonchi. No retractions or accessory muscle use. ABDOMEN: Positive normal bowel sounds x 4. Soft with mild tenderness over the lower abdomen and right upper abdomen. Sutured incisions appear intact without drainage or discharge. There is no evidence of abscess or cellulitis. MUSCULOSKELETAL: No muscle atrophy, erythema, or edema noted. Full range of motion without joint tenderness in all extremities. Medical Decision & Procedures ER Provider Diagnostic Interpretation: ABDOMEN 2VIEW W/PA CHEST RTN CLINICAL HISTORY: right shoulder pain after abd surg pain COMPARISON STUDY: No previous studies for comparison. FINDINGS: Subdiaphragmatic free air on a postoperative basis. Lungs are considered clear. No evidence pneumothorax. Bowel pattern is nonobstructive. IMPRESSION: Subdiaphragmatic and free intraperitoneal air on a postoperative basis. Negative chest. Laboratory Results Test 03/25/17 02:30 03/25/17 05:00 Total Bilirubin 0.9 mg/dl (0.2-1) Aspartate Amino Transf (AST/SGOT) 13 U/L (15-37) Alanine Aminotransferase (ALT/SGPT) 16 U/L (12-78) Alkaline Phosphatase 31 U/L (45-117) Total Protein 7.1 gm/dl (6.4-8.2) Albumin 4.2 gm/dl (3.4-5.0) Globulin 2.9 gm/dl (2.5-4.0) Albumin/Globulin Ratio 1.4 (0.9-2) Urine Color GREEN Urine Appearance CLEAR (CLEAR) Urine pH (4.5-7.5) Urine Specific [place] 1.009 (1.000-1.030) Urine Protein NEG (NEG) Urine Glucose (UA) (NEG) Urine Ketones (NEG) Urine Occult Blood (NEG) Urine Nitrite (NEG) Urine Bilirubin (NEG) Urine Urobilinogen (NEG) Urine Leukocyte Esterase (NEG) Urine RBC 10-30 /hpf (0-4) Urine WBC 1-5 /hpf (0-5) Urine Epithelial Cells 10-20 /lpf (0-5) Urine Bacteria NEG (NEG) Medications Administered Medications (Trade) Dose Ordered Sig/Nikki Route Start Time Stop Time Status Last Admin Dose Admin Sodium Chloride (Nss 1000ml) 1,000 ml @ 999 mls/hr Q1H1M ONCE IV 03/25/17 04:15 03/25/17 05:15 DC 03/25/17 04:13 999 MLS/HR Morphine Sulfate (MoRPHine SULFATE INJ) 6 mg NOW STAT IV 03/25/17 04:06 03/25/17 04:07 DC 03/25/17 04:13 6 MG Ondansetron HCl (Zofran Inj) 4 mg NOW STAT IV 03/25/17 04:06 03/25/17 04:07 DC 03/25/17 04:13 4 MG Hydromorphone HCl (Dilaudid Inj) 1 mg NOW STAT IV 03/25/17 04:48 03/25/17 04:49 DC 03/25/17 04:59 1 MG Diphenhydramine HCl (Benadryl Inj) 25 mg NOW STAT IV 03/25/17 05:30 03/25/17 05:31 DC 03/25/17 07:57 25 MG Methylprednisolone Sodium Succinate (Solu-Medrol IV) 125 mg NOW STAT IV 03/25/17 05:30 03/25/17 05:31 DC 03/25/17 07:57 125 MG Hydromorphone HCl (Dilaudid Inj) 1 mg NOW STAT IV 03/25/17 06:04 03/25/17 06:05 DC 03/25/17 06:07 1 MG Hydromorphone HCl (Dilaudid Inj) 1 mg NOW STAT IV 03/25/17 07:14 03/25/17 07:15 DC 03/25/17 07:27 1 MG Magnesium Hydroxide (Milk Of Magnesia Susp) 30 ml Q6H PRN PO 03/25/17 09:00 04/24/17 08:59 03/25/17 19:38 30 ML Zolpidem Tartrate 5 mg 5 mg HSZ PRN PO 03/25/17 09:00 04/24/17 08:59 03/25/17 23:24 5 MG Lactated Ringer's (Lr 1000ml) 1,000 ml @ 125 mls/hr Q8H IV 03/25/17 08:59 04/24/17 08:58 03/26/17 01:48 125 MLS/HR ED Course Physical exam and history were performed. Nursing notes and EMR were reviewed. Patient appears to have significant postoperative pain following a hysterectomy. The patient appears quite comfortable on examination. IV access was established and labs were obtained. Patient was initially medicated with morphine, however this did not change her pain. I did end up giving her IV Dilaudid, and following this she was able to undergo x-rays. The patient's blood work is as above and was reviewed. She does have a mildly elevated white blood cell count, however this was expected following surgery. She is without gross anemia or significant electrolyte imbalance. Her x-ray shows free air, however this was expected as she is postoperative. The patient did require an additional dose of IV Dilaudid, and follow this she was able to lay in the ER bed. The case was discussed with the on-call RIVER DRIVER, Dr. Cassidy, who recommended CT scan of the abdomen and pelvis as the patient is having pain that is felt to be outside of normal. The patient and I had a lengthy discussion regarding her care, and CT scan was ordered. The patient remained in stable condition at the time of shift change. The case was discussed with Christopher Guerra PA-C, at this time. CT scan is pending, and we will need to call RIVER DRIVER with the results. Please see Mr Guerra's dictation for further patient course, plan, and disposition. The chart was completed utilizing [employer] Speech Voice Recognition Software. Grammatical errors, random word insertions, pronoun errors, and incomplete sentences are an occasional consequence of this system due to software limitations, ambient noise, and hardware issues. Any formal questions or concerns about the content, text, or information contained within the body of this dictation should be directly addressed to the provider for clarification. . Medical Decision Differential diagnosis: Etiologies such as appendicitis, diverticulitis, PUD, biliary pathology, UTI, pancreatitis, obstruction, mesenteric ischemia, aortic pathology, infections, inflammatory bowel disease, renal colic, as well as others were entertained. Impression Primary Impression: Post-op pain Departure Information Dispostion Still a Patient Condition FAIR Referrals Tressler,Gallito L. PA-C (PCP) Forms WORK / SCHOOL INSTRUCTIONS, HOME CARE DOCUMENTATION FORM, IMPORTANT VISIT INFORMATION Patient Instructions My [facility]
--- NOTE | 2017-03-26 07:41 | OB/GYN Progress Note ---
[employer]MENT [employer]IC Progress Note Date of Service March 26, 2017. Subjective conversation w/ patient, physical exam, chart review, lab review Ambulation: ambulating normally Voiding: no voiding problems Passing Gas: Yes Diet Tolerance: Regular Diet Objective Vital Signs Date Time Temp Pulse Resp B/P Pulse Ox O2 Delivery O2 Flow Rate FiO2 03/26/17 06:25 36.8 60 16 111/73 99 Room Air 03/26/17 04:15 36.9 64 16 103/69 Room Air 03/25/17 23:25 36.5 58 18 103/66 Room Air 03/25/17 23:25 Room Air 03/25/17 19:00 36.6 66 20 117/72 Room Air 03/25/17 19:00 Room Air 03/25/17 15:00 Room Air 03/25/17 15:00 36.7 59 20 113/76 Room Air 03/25/17 10:25 36.6 62 18 114/72 03/25/17 10:25 36.6 62 18 114/72 Room Air 03/25/17 10:25 Room Air 03/25/17 10:08 37.2 66 18 119/58 97 03/25/17 09:21 63 16 113/68 99 Room Air 03/25/17 08:29 94 Room Air Physical Exam General Appearance: WELL-APPEARING Respiratory/Chest: lungs clear Cardiovascular: regular rate, rhythm Abdomen: soft Incision Description: Clean, Dry & Intact Extremities: no calf tenderness Laboratory Results Last 24 Hours Test 03/26/17 06:03 White Blood Count 8.47 K/uL Red Blood Count 3.71 M/uL Hemoglobin 10.6 g/dL Hematocrit 33.9 % Mean Corpuscular Volume 91.4 fL Mean Corpuscular Hemoglobin 28.6 pg Mean Corpuscular Hemoglobin Concent 31.3 g/dl Platelet Count 217 K/uL Mean Platelet Volume 9.2 fL Neutrophils (%) (Auto) 64.5 % Lymphocytes (%) (Auto) 25.0 % Monocytes (%) (Auto) 10.2 % Eosinophils (%) (Auto) 0.1 % Basophils (%) (Auto) 0.0 % Neutrophils # (Auto) 5.46 K/uL Lymphocytes # (Auto) 2.12 K/uL Monocytes # (Auto) 0.86 K/uL Eosinophils # (Auto) 0.01 K/uL Basophils # (Auto) 0.00 K/uL RDW Standard Deviation 45.7 fL RDW Coefficient of Variation 13.7 % Immature Granulocyte % (Auto) 0.2 % Immature Granulocyte # (Auto) 0.02 K/uL Sodium Level 143 mmol/L Potassium Level 3.6 mmol/L Chloride Level 107 mmol/L Carbon Dioxide Level 29 mmol/L Anion Gap 7.0 mmol/L Blood Urea Nitrogen 11 mg/dl Creatinine 0.73 mg/dl Est Creatinine Clear Calc Drug Dose 99.7 ml/min Estimated GFR () 122.8 Estimated GFR (Non- 106.0 BUN/Creatinine Ratio 15.5 Random Glucose 86 mg/dl Calcium Level 8.2 mg/dl Assessment and Plan Day Number: 2 Continue Routine Care: Patient is now describing the pain as no longer right shoulder tip, rather in her chest, worse with inspiration. This is a change in symptomology. I will get a chest CT to rule out PE. ASHLIE
[2017-03-26] MEDS ORDERED: OPTIRAY 320 IV PRN (07:45)
[2017-03-26 08:00] VITALS: BP 108/72; PULSE 79; TEMP 36.6; O2SAT 100
[2017-03-26] MEDS ORDERED: DiphenhydrAMINE INJ 25 MG in SYRINGE 0 ML IV SCH (08:15)
[2017-03-26] MEDS ORDERED: DiphenhydrAMINE HCL 50 MG/ML VIAL IV SCH (08:30)
[2017-03-26] MEDS ORDERED: METHYLPREDNISOLONE IV 125 MG in SYRINGE 0 ML IV SCH (08:30)
[2017-03-26] MEDS: DOCUSATE SODIUM 100 MG CAP PO SCH (08:33)
--- NOTE | 2017-03-26 09:30 | DIAGNOSTIC IMAGING REPORT ---
CT ANGIOGRAM OF THE CHEST CLINICAL HISTORY: Atypical chest pain COMPARISON STUDY: Chest x-ray dated 03/25/2017 TECHNIQUE: Following the IV administration of 87 mL of Optiray-320, CT angiogram of the thorax was performed from the thoracic inlet to the lung bases utilizing the pulmonary embolus protocol. Images are reviewed in the axial, sagittal, and coronal planes. IV contrast was administered without complication. MIP imaging was performed. CT DOSE: 221.84 mGy.cm FINDINGS: No pathologically enlarged axillary mediastinal or hilar lymph nodes were visualized. There was no evidence of thoracic aortic dilatation. There were no pulmonary artery filling defects to indicate acute pulmonary embolism. There are trace pleural effusions. There are bibasal or dependent airspace opacities, likely atelectatic There is free intraperitoneal air, likely secondary to recent surgery. There is air within the anterior abdominal wall. IMPRESSION: 1. Free intraperitoneal air, likely secondary to recent surgery 2. Air within the rectus sheath, likely secondary to recent surgery 3. Bibasilar opacities likely atelectatic 4. No evidence of acute pulmonary embolism Electronically signed by: Ran Valverde M.D. 03/26/2017 9:29 AM Dictated Date/Time: 03/26/2017 9:25 AM
[2017-03-26] MEDS ORDERED: RXC5 PO (10:41)
--- NOTE | 2017-03-26 10:41 | Discharge Instructions ---
Discharge Instructions Date of Service March 26, 2017. Admission Reason for Admission: Post-Op Pain Discharge Discharge Diagnosis / Problem: post op pain Discharge Goals Goal(s): Routine recovery after surgery Activity Recommendations Activity Limitations: per Instructions/Follow-up section . Instructions / Follow-Up Instructions / Follow-Up POST OPERATIVE: BOWEL FUNCTION/MEDICATIONS: 1. Constipation pain and discomfort are the most common complaints 5-7 days after surgery. Points 2-6 address the things that can help. 2. Chewing gum can help stimulate the gut and help improve digestion and motility. 3. Milk of Magnesia 1-2 times per day until return of bowel function. 4. Colace is a stool softener that helps. Taking this 2-3 times per day until bowel function returns to normal is highly recommended. 5. Dulcolax is a laxative that may be used if several days have passed without a bowel movement. Alternatively Miralax may be used daily instead. 6. Drink plenty of fluids as this will also reduce constipation. 7. Narcotic pain medications will be prescribed by your physician. They are safe to use and we encourage you to use them. If you are not allergic, ibuprofen will also be prescribed. Many patients will be able to transition off of the narcotic medications to ibuprofen by postoperative day 3. ACTIVITY RECOMMENDATIONS: 1. Get plenty of rest and listen to your body. If you are tired, take a nap. 2. You may shower, but do not take a tub bath until you see your doctor at the 2 week post operative visit. 3. Absolutely NO intercourse and nothing in the vagina until you are examined by your doctor at the 6 week visit. At that visit it will be determined when such activities can be resumed. This can range from 6-12 weeks after your surgery depending on healing time. 4. The main physical activity in the first week should be walking. By the second week you can slowly increase activity. There are no limits on walking up and down stairs. 5. Do not lift more than 5-10 lbs for 4 weeks. Remember the "one-handed rule", i.e. if you can lift something with only one hand it's likely okay. 6. Minimize manager benefit like vacuuming and exercising for 4 weeks. "Overdoing it" can lead to incisions not healing, pain and vaginal bleeding , so again, listen to your body. 7. Driving can be resumed when you feel able. Do not drive within 24 hours of taking a narcotic medication. EXPECTATIONS: 1. Vaginal spotting, bleeding and discharge are common after surgery. There may even be an odor to the discharge which is often related to sutures used in the vagina. If you experience heavy vaginal bleeding, call the office number day or night [phone]. 2. Bladder discomfort is common after surgery from the catheter. This usually resolves in 1-2 weeks. 3. By the end of the 3rd or 4th week you should be feeling much better. It may take up to 6 weeks for your energy levels to return to normal. 4. Narcotic medications have side effects such as: dizziness, headache, nausea and/or vomiting. If you suspect your pain medication is causing problems, call our office and we may be able to prescribe an alternate medication. 5. The skin incisions are often covered with a liquid bandage. This will gradually peel off over time. CALL THE OFFICE IF YOU HAVE ANY OF THE FOLLOWIN. Temperature of 101 degrees or higher. 2. Severe abdominal or pelvic pain not relieved by pain medication. 3. Persistent nausea or vomiting. 4. Increased pain with urination or difficulty urinating. 5. Bright red bleeding that soaks more than 1 pad per hour. CONTACT PHONE NUMBERS: Main Office: [phone] Surgical Nurse: [phone] extension [phone] Avoid all tobacco products. If you need help to stop smoking, call [place] FREE QUITLINE at . This is a free call. Current Hospital Diet Patient's current hospital diet: Regular Diet Discharge Diet Recommended Diet: Regular Diet Pending Studies Studies pending at discharge: no Medical Emergencies . Who to Call and When: Medical Emergencies: If at any time you feel your situation is an emergency, please call 911 immediately. . Non-Emergent Contact Non-Emergency issues call your: Cell Maker . . "Provider Documentation" section prepared by Raul Ford. . VTE Core Measure Inpt VTE Proph given/why not?: Margareth Moon, SCD's
[2017-03-26 11:40] VITALS: BP 108/72; PULSE 79; TEMP 36.6; O2SAT 100
--- NOTE | 2017-03-31 11:26 | DISCHARGE SUMMARY ---
Sherry had a laparoscopic hysterectomy 24 hours earlier and had been sent home. Discharge instruction had been, but she unfortunately bounced back to the ER with pain. She was assessed by the ER team and had a CAT scan. The CAT scan was essentially normal except a small collection of fluid and blood in the pelvis. There was no evidence of bowel obstruction. At the time, the patient's pain was primarily thought to be related to CO2 gas and typical postop pain; however, she was requiring IV narcotics and we made a decision to bring her into the hospital for repeat observation. Her course in hospital this that over the next day, she did improve. She initially had some increased pain, which she described in her chest. To rule out pulmonary embolus we did a CT chest and this was negative. The patient dramatically improved and started passing flatus, had a bowel movement and then said her pain has all but disappeared. PHYSICAL EXAMINATION: VITAL SIGNS: Stable. She was afebrile. CHEST: Clear. ABDOMEN: Benign. Bowel sounds positive, nontender. No distention. Incision is clean, dry and intact. EXTREMITIES: Negative. IMPRESSION AND PLAN: Observed on the and let go on the . Patient was given a prescription for oxycodone and told to follow up in the office with any further problems.
== END 2017-03-26 12:25 | disposition home or self-care (01) ==
LOC: ENRESERVDT → ENRESERVTM → C.EDB 01:56 → C.OBG 09:02
PROVIDERS: ADMIT Obstetrics & Gynecology; ATTEND Obstetrics & Gynecology
DX: G89.18 Other acute postprocedural pain (principal); F17.200 Nicotine dependence, unspecified, uncomplicated; Z91.013 Allergy to seafood; Z88.6 Allergy status to analgesic agent